=== PATIENT | male | born 1995 | race African-American/Black ===

== ENCOUNTER 2019-06-21 10:09 | Emergency (ER) | payer MEDICAID, SELFPAY ==
--- NOTE | ~2019-06-21 | XR_ITS ---
EXAMINATION: XR knee RT min 4V DATE: 06/21/2019 10:31 INDICATION: Right knee pain. TECHNIQUE: 4 views of right knee were obtained. COMPARISON: None. FINDINGS: Bone alignment is normal. No fracture. Joint spaces are well maintained. There is no knee j oint effusion. IMPRESSION: 1. Normal right knee. Reviewed, dictated and finalized at location [facility] [employer] IMPRESSION: 1. Normal right knee.
[2019-06-21 10:13] VITALS: BP 145/68; PULSE 77; RESP 16; TEMP 36.6; O2SAT 100
--- NOTE | 2019-06-21 10:21 | ED.LOWEXIN ---
HPI - Extremity Injury (Lower) General Chief Complaint: Extremity Injury, Lower Stated Complaint: R KNEE PAIN Source: patient Mode of arrival: ambulatory Limitations: no limitations History of Present Illness HPI Narrative: 24-year-old male presents to urgent with complaints of right knee pain for the past week. Patient reports that the pain is located to the lateral and posterior aspect of his right knee .patient has been wearing an Anderson wrap with minimal relief. Patient's not tried taking any [id number] medications. Patient denies numbness, tingling, bruising, swelling or erythema. Patient reports that the pain is worse with sitting still. Patient denies injury to his knee Onset (ago): week(s) (1) Injury: Right: knee Relieving factors: nothing Other symptoms: none Treatments prior to arrival: bandage Related Data Allergies Allergy/AdvReac Type Severity Reaction Status Date / Time No Known Drug Allergies Allergy Unknown none Verified 05/27/19 11:48 Review of Systems Review of Systems: All systems reviewed & are unremarkable except as noted in HPI and below Constitutional: Constitutional: Denies chills, Denies fatigue, Denies fever(s) and Denies weakness Cardiovascular: Cardiovascular: Denies chest pain and Denies radiating jaw, neck or arm pain Respiratory: Respiratory: Denies cough, Denies dyspnea and Denies wheezing Gastrointestinal: Gastrointestinal: Denies abdominal pain, Denies diarrhea, Denies nausea and Denies vomiting Musculoskeletal: Musculoskeletal: Reports as per HPI Comments: right knee pain --posterior and lateral aspect Neurologic: Denies dizziness and Denies syncope [facility] Social History Social History (Updated 06/21/19 @ 10:24 by Stefanie Gonzales APN) Smoking status: Never smoker Alcohol intake: never Substance use: never Exam Const: General: healthy appearing, no acute distress and alert Orientation/consciousness: patient oriented x3 Neck: Neck: normal visual inspection and no lymphadenopathy Resp: Effort & Inspection: normal respiratory effort, not tachypneic and no use of accessory muscles Auscultation: clear to auscultation bilaterally, no crackles and no wheezes Cardio: Rate: regular rate, not bradycardic and not tachycardic Rhythm: regular rhythm Skin: General skin exam: normal color Rashes: no rashes Neuro: General: patient oriented x3 and moves all extremities Extrem: General: normal to inspection, no clubbing, cyanosis or edema, no pedal edema and no edema Other: No pain noted to right knee upon palpation. Full range of motion noted to right knee. There is no pain noted with passive or active range of motion. There is no erythema, swelling or signs of infection noted Psych: Appearance: well kempt Mental Status: mental status grossly normal Affect: normal affect Attitude: cooperative Course Vital Signs Vital signs: Vital Signs Temperature 36.6 C 06/21/19 10:13 Pulse Rate 77 06/21/19 10:13 Respiratory Rate 16 06/21/19 10:13 Blood Pressure 145/68 H 06/21/19 10:13 Pulse Oximetry 100 06/21/19 10:13 Temperature 36.6 C 06/21/19 10:13 Pulse Rate 77 06/21/19 10:13 Respiratory Rate 16 06/21/19 10:13 Blood Pressure 145/68 H 06/21/19 10:13 Pulse Oximetry 100 06/21/19 10:13 MDM - Extremity Injury (Lower) MDM Narrative Medical decision making narrative: Right knee x-ray was negative. Anderson wrap was applied to right knee. Patient agrees to follow-up with orthopedics if symptoms not improved. Patient agrees to take meloxicam as prescribed. Manual B/P was obtained -- pt agrees to monitor his B/P and will follow up with his PCP Differential Diagnosis Differential diagnosis: Likely other (Fracture, arthralgia, effusion) Imaging Data Radiologist's impression: Right knee negative for fracture Critical Care Time Critical Care Time Critical Care Time: No Discharge Plan Discharge Clinical Impression: Acute pain of right knee P
== END 2019-06-21 10:45 | disposition home or self-care (01) ==
PROVIDERS: Emergency Provider Nurse Practitioner Family
DX: M25.561 Pain in right knee (principal)
CPT/HCPCS: 73564; 99213; G0463